=== PATIENT | male | born 1995 | race American Indian/Alaskan Native ===

== ENCOUNTER 2018-05-30 15:04 | Emergency (ER) | payer OTHER ==
[2018-05-30 15:09] VITALS: BMI 22.0
[2018-05-30 16:00] LABS: URINE BACTERIA OCC (<OCC); URINE BILIRUBIN NEGATIVE (NEGATIVE); URINE BLOOD NEGATIVE (NEGATIVE); URINE CLARITY Hazy (Clear); URINE COLOR Yellow (YELLOW); URINE GLUCOSE (UA) NORMAL (Normal); URINE LEUKOCYTE ESTERASE 2+ Leu/uL (Negative); URINE PROTEIN NEGATIVE (NEGATIVE)
--- NOTE | 2018-05-30 16:00 | C.PDOC ---
History Of Present Illness 23 y/o male pt presents to the ER complaining of penile discharge since this morning. (+) DysuriaPt reports he has unprotected sex x3 days ago. Pt states he had a similar episode last month, received a shot and prescription which he did not finish. Pt denies hematuria, nausea, vomiting, abdominal pain, fever and chills. Time Seen by Provider: 05/30/18 15:34 Chief Complaint (Nursing): Back Pain History Per: Patient History/Exam Limitations: no limitations Onset/Duration Of Symptoms: Days Current Symptoms Are (Timing): Still Present Previous Symptoms: Back Pain Past Medical History Reviewed: Historical Data, Nursing Documentation, Vital Signs Vital Signs: Last Vital Signs Temp 98.1 F 05/30/18 15:09 Pulse 96 H 05/30/18 15:09 Resp 20 05/30/18 15:09 BP 114/74 05/30/18 15:09 Pulse Ox 98 05/30/18 15:09 Family History: States: No Known Family Hx - Social History Hx Alcohol Use: Yes Hx Substance Use: Yes - Immunization History Hx Influenza Vaccination: No Hx Pneumococcal Vaccination: No Review Of Systems Constitutional: Negative for: Fever, Chills Gastrointestinal: Negative for: Nausea, Vomiting, Abdominal Pain Genitourinary: Positive for: Dysuria. Negative for: Hematuria Musculoskeletal: Positive for: Back Pain Physical Exam - Physical Exam Appears: Well, Non-toxic, No Acute Distress Skin: Normal Color, Warm, Dry Head: Atraumatic, Normacephalic Eye(s): bilateral: Normal Inspection, EOMI Nose: Normal Oral Mucosa: Moist Neck: Normal ROM, Supple Chest: Symmetrical Cardiovascular: Rhythm Regular Respiratory: Normal Breath Sounds Gastrointestinal/Abdominal: Soft, No Tenderness Back: No CVA Tenderness, No Vertebral Tenderness Extremity: Normal ROM (x4) Neurological/Psych: Oriented x3, Normal Speech, Normal Cognition ED Course And Treatment O2 Sat by Pulse Oximetry: 98 (RA) Pulse Ox Interpretation: Normal Progress Note: Zithromycin and Rocephin ordered. Previous visit noted, pt was (+) for gonrrhea. UA (+) . COncern for urethritis - pt will be treated with doxycycline. Patient is ambulatory in the emergency department with no signs of discomfort. Patient was advised to follow up with physician/clinic in 1-2 days. Disposition - Disposition Disposition: HOME/ ROUTINE Disposition Time: 16:05 Condition: STABLE Additional Instructions: Follow up with your primary medical doctor or clinic in 2-5 days for further evaluation. Take medications as prescribed. Inform your partner and have them treated. Use condoms with intercourse. Return to the emergency department at any time if symptoms persist or worsen. Prescriptions: Doxycycline Hyclate [Doryx] 100 mg PO BID #14 cap Instructions: Urethritis (DC) Forms: [employer] ([place]) - Clinical Impression Clinical Impression: Urethritis - PA / [employer] / Resident Statement / has reviewed & agrees with the documentation as recorded. - Scribe Statement The provider has reviewed the documentation as recorded by the Mir Quezada Do All medical record entries made by the Mir were at my direction and personally dictated by me. I have reviewed the chart and agree that the record accurately reflects my personal performance of the history, physical exam, medical decision making, and the department course for this patient. I have also personally directed, reviewed, and agree with the discharge instructions and disposition.
[2018-05-30] MEDS ORDERED: cefTRIAXone (Rocephin) 250 mg Inj IM STA (16:04)
[2018-05-30 16:27] VITALS: BP 110/67; PULSE 81; RESP 18; TEMP 98.7
[2018-05-30 19:20] VITALS: O2SAT 98
== END 2018-05-30 17:14 | disposition home or self-care (01) ==
LOC: C.ER 15:04
DX: N34.2 Other urethritis (principal)
CPT/HCPCS: 81001; 87086; 87491; 87591; 96372; 99285; J0696